=== PATIENT | male | born 1960 | race Caucasian/White ===

== ENCOUNTER 2016-11-05 17:41 | Inpatient (IN) | payer OTHER ==
[~2016-11-05] VITALS: Ht 188 cm; Wt 111.7 kg
[2016-11-05] MEDS ORDERED: morphine 4 MG/ML VIAL IV STA (20:37)
[2016-11-05 20:53] LABS: BASOPHILS % 0.4 % (0.0-2.0); EOSINOPHILS # 0.1 10^3/ul (0.0-0.5); EOSINOPHILS % 1.3 % (0.0-7.0); LYMPHOCYTES # 2.6 10^3/ul (0.8-2.9); LYMPHOCYTES % 27.9 % (15.0-51.0); MEAN CORPUSCULAR HEMOGLOBIN 31.9 pg (29.0-33.0); MEAN CORPUSCULAR HGB CONC 34.7 g/dl (32.0-37.0); MEAN CORPUSCULAR VOLUME 91.8 fl (82.0-101.0); MONOCYTE # 0.8 10^3/ul (0.3-0.9); MONOCYTES % 8.3 % (0.0-11.0); NEUTROPHIL # 5.8 10^3/ul (1.6-7.5); NEUTROPHILS % 62.1 % (39.0-77.0); RED BLOOD COUNT 5.01 10^6/ul (4.70-6.10); RED CELL DISTRIBUTION WIDTH 13.2 % (11.5-14.5); WHITE BLOOD COUNT 9.3 10^3/ul (4.8-10.8)
[2016-11-05 20:57] LABS: CONDITION 1; LH ANALYZER COMMENTS 1; SUSPECT 1; UNCORRECTED WBC 11.2 10^3/ul (4.8-10.8)
[2016-11-05 20:58] LABS: CHLORIDE 103 mmol/L (97-110); POTASSIUM 3.9 mmol/L (3.5-5.1); SODIUM 145 mmol/L (135-144)
[2016-11-05 20:59] LABS: INR 0.97; PROTIME 12.9 Sec (12.2-14.2)
[2016-11-05 21:01] LABS: ANION GAP 17 (8-16); BLOOD UREA NITROGEN 16 mg/dl (7-20); CARBON DIOXIDE 29 mmol/L (21-31)
[2016-11-05 21:02] LABS: CALCIUM 9.7 mg/dl (8.4-10.2); GLUCOSE 95 mg/dl (70-220)
[2016-11-05] MEDS ORDERED: GLIP-95 PO (21:05)
[2016-11-05] MEDS ORDERED: HYDROmorphONE 1 MG/ML SYG IV STA (21:05)
[2016-11-05] MEDS ORDERED: BENA20TA48 PO (21:05)
[2016-11-05] MEDS ORDERED: METF-388 PO (21:06)
[2016-11-05] MEDS ORDERED: SIMV20TA97 PO (21:06)
[2016-11-05] MEDS ORDERED: ASPI-664 PO (21:07)
[2016-11-05] MEDS ORDERED: METO-448 PO (21:08)
--- NOTE | 2016-11-05 21:11 | RADRPT ---
PROCEDURE: XR Ankle. CLINICAL INDICATION: Fracture, pain TECHNIQUE: AP and lateral views of the right ankle were performed. COMPARISON: None. FINDINGS: There is a comminuted fracture of the distal fibula, above the level ankle joint. There is widening of the tibiofibular syndesmosis. There is lateral dislocation of the talus relative to the distal tibia, 2.6 cm. There are multiple small adjacent bony fragments. There is small posterior and plan tar calcaneal spurs. There is an ankle effusion. IMPRESSION: 1. Comminuted fracture of the distal fibula above the level of the ankle joint. 2. Lateral dislocation of the talus up to 2.6 cm. Disruption of the tibiofibular syndesmosis. 3. Ankle effusion. RPTAT: HBST .Miguel Angel Mosqueda MD, Date Time Electronically viewed and signed by .Miguel Angel Mosqueda MD, on 11/05/2016 21:11 .T/
--- NOTE | 2016-11-05 21:13 | RADRPT ---
PROCEDURE: XR Chest. CLINICAL INDICATION: Chest Pain. TECHNIQUE: Single frontal view of the chest was obtained. COMPARISON: None. FINDINGS: The cardiomediastinal silhouette is normal size. Mildly enlarged. There is a small left pleural ef fusion. There is left base atelectasis. There is no pneumothorax . The osseous structures and soft tissues are unremarkable. IMPRESSION: 1. Mild cardiomegaly. 2. Small left pleural effusion. Left base atelectasis. RPTAT: HBST .Miguel Angel Mosqueda MD, MD Date Time Electronically viewed and signed by .Miguel Angel Mosqueda MD, on 11/05/2016 21:13 .T/
[2016-11-05 21:15] LABS: TROPONIN-I < 0.012 ng/ml (0.00-0.12)
[2016-11-05 21:28] LABS: CREATININE 0.87 mg/dl (0.61-1.24)
[2016-11-05] MEDS ORDERED: CEFTRIAXONE 1 GM/50 ML (PMX) 50 ML IVPB ONE (22:30)
[2016-11-05 22:37] LABS: MEAN PLATELET VOLUME 6.7 fl (7.4-10.4)
[2016-11-05 22:38] LABS: PLATELET COUNT 259 10^3/UL (140-440)
[2016-11-05 22:42] LABS: PLATELET ESTIMATE PLT APPEAR ADEQUATE; PLATELETS CLUMPS 3+
[2016-11-05] MEDS ORDERED: SOD CHLORIDE 0.9% 1,000 ML IV STA (22:46)
--- NOTE | 2016-11-05 22:46 | ERA ---
ER Documentation Chief Complaint Date/Time DATE: 11/05/16 TIME: 22:40 Chief Complaint rle fx 11/10, observed ulceration, redness, swell, states needs sx HPI This is a 55-year-old male who presents to the emergency room for evaluation of a right ankle fracture. According to the patient's son who is given history this patient did fracture his ankle going down steps on October 25, 2016. This patient was scheduled for his surgery at [facility] [place] however he states that surgery was canceled today due to "paperwork" the patient states that he was supposed to have surgery with Dr. Bishop. ROS All systems reviewed and are negative except as per history of present illness. Medications Home Meds Reported Medications Metoprolol Tartrate* (Lopressor*) 25 Mg Tab, 12.5 MG PO BID, #60 TAB 11/05/16 Aspirin* (Aspirin* EC) 81 Mg Tablet.dr, 81 MG PO DAILY, TAB 11/05/16 Metformin Hcl* (Metformin Hcl*) 1,000 Mg Tablet, 1000 MG PO WITH BREAKFAST, #30 TAB 11/05/16 Simvastatin* (Zocor*) 20 Mg Tablet, 20 MG PO QHS, #30 TAB 11/05/16 Benazepril Hcl* (Benazepril Hcl*) 20 Mg Tablet, 20 MG PO DAILY, #30 TAB 11/05/16 Glipizide* (Glipizide*) 10 Mg Tablet, 10 MG PO BID, TAB 11/05/16 Allergies Allergies: Coded Allergies: No Known Allergy (Unverified , 11/05/16) PMhx/Soc History of Surgery: No Anesthesia Reaction: No Hx Neurological Disorder: No Hx Respiratory Disorders: No Hx Cardiac Disorders: No Hx Psychiatric Problems: No Hx Miscellaneous Medical Probl: No Hx Alcohol Use: No Hx Substance Use: No Hx Tobacco Use: No Smoking Status: Never smoker Physical Exam Vitals Vital Signs Date Time Temp Pulse Resp B/P Pulse Ox O2 Delivery O2 Flow Rate FiO2 11/05/16 22:28 78 18 141/69 99 11/05/16 21:00 98 2.0 28 11/05/16 20:36 92 18 144/98 99 Nasal Cannula 2.0 11/05/16 20:18 Nasal Cannula 11/05/16 17:53 99.0 114 20 115/78 96 Physical Exam INITIAL VITAL SIGNS: Reviewed by me GENERAL: The patient is well developed and appropriate for usual state of health in no apparent distress HEENT: Pupils equal, round, and reactive to light. EOMI. There is no scleral icterus. NECK: C-spine is soft and supple, there is no meningismus. There is no cervical lymphadenopathy. LUNGS: Clear to auscultation bilaterally. There are no rales, wheezes or rhonchi. HEART: Regular rate and rhythm, no murmurs, clicks, rubs or gallops. ABDOMEN: Soft, non-tender, non-distended. There are bowel sounds in all four quadrants. No rebound or guarding. EXTREMITIES: Visible deformity of the right ankle with surrounding area of cellulitis and skin necrosis of the medial portion of the ankle, PT and DP pulses intact and symmetric bilaterally NEUROLOGICAL: The patient moves all four extremities with 5/5 strength. Cranial nerves II - XII are intact. Normal gait. Alert and oriented SKIN: There is no apparent rash or petechiae. HEME/LYMPHATIC: There is no evidence of excessive bruising or lymphedema. PSYCHIATRIC: The patient does not appear anxious or depressed. Result Diagram: 11/05/16201911/05/162019 Results 24 hrs Laboratory Tests Test 11/05/16 20:20 Activated Partial Thromboplast Time 26.0Sec Anion Gap 17 Basophils # 0.010^3/ul Basophils % 0.4% Blood Urea Nitrogen 16mg/dl Calcium Level 9.7mg/dl Carbon Dioxide Level 29mmol/L Chloride Level 103mmol/L Creatinine 0.87mg/dl Eosinophils # 0.110^3/ul Eosinophils % 1.3% Glucose Level 95mg/dl Hematocrit 46.0% Hemoglobin 16.0g/dl INR International Normalized Ratio 0.97 Lactic Acid Level 1.8mmol/L Lymphocytes # 2.610^3/ul Lymphocytes % 27.9% Mean Corpuscular Hemoglobin 31.9pg Mean Corpuscular Hemoglobin Concent 34.7g/dl Mean Corpuscular Volume 91.8fl Mean Platelet Volume 6.7fl Monocytes # 0.810^3/ul Monocytes % 8.3% Neutrophils # 5.810^3/ul Neutrophils % 62.1% Nucleated Red Blood Cells # 0.010^3/ul Nucleated Red Blood Cells % 0.0/100WBC Platelet Count 78079^3/UL Potassium Level 3.9mmol/L Prothrombin Time 12.9Sec Prothrombin Time Ratio 1.0 Red Blood Count 5.0110^6/ul Red Cell Distribution Width 13.2% Sodium Level 145mmol/L Troponin I < 0.012ng/ml White Blood Count 9.310^3/ul Current Medications Medications (Trade) Dose Ordered Sig/Sonam Route PRN Reason Start Time Stop Time Status Last Admin Dose Admin Morphine Sulfate (morphine) 4 mg ONCE STAT IV 11/05/16 20:37 11/05/16 20:38 DC 11/05/16 20:44 Hydromorphone HCl 1 mg 1 mg ONCE STAT IV 11/05/16 21:05 11/05/16 21:06 DC 11/05/16 21:23 Ceftriaxone Sodium (Rocephin) 50 ml @ 100 mls/hr ONCE ONCE IVPB 11/05/16 22:30 11/05/16 22:59 11/05/16 22:33 Procedures/MDM Chest X-ray 1V Interpreted by me: Soft Tissue: No acute abnormalities Bones: No acute abnormalities Mediastinum/Cardiac Silhouette/Lungs: [No acute abnormalities] EKG: Rate/Rhythm: [Normal Sinus Rhythm] QRS, ST, T-waves: [No changes consistent w/ acute ischemia] Impression: [No evidence of ischemia or arrhythmia] X-ray Ankle 3V Interpreted by me: Bones: 1. Comminuted fracture of the distal fibula above the level of the ankle joint. 2. Lateral dislocation of the talus up to 2.6 cm. Disruption of the tibiofibular syndesmosis. 3. Ankle effusion. Joints: Lateral dislocation of talus This is a 55-year-old male who presents to the emergency room for evaluation of right ankle fracture. This patient had an obvious deformity of the right ankle , he was neurovascularly intact. This patient was scheduled for surgery at [facility] tomorrow, however the surgery was canceled due to "paperwork ". I am assuming that this paperwork was a reference to insurance as there was some confusion as to whether this patient was capitated to another hospital or not. We have contacted the patient's insurance company who has given us an authorization number for this patient to be admitted at this facility. I have relayed this information to the patient's family, and Dr. Bishop, and our nursing supervisor [employer] who are all in agreement that the patient can stay in the hospital. This patient will be admitted to Dr. Orellana with orthopedic consult with Dr. Bishop. I have elected not to reduce this fracture as it is not acute and there is no neurovascular compromise. This patient did have a surrounding area of cellulitis with slight amount of skin necrosis on the medial malleolus. The patient did have blood work obtained including a lactic acid and blood cultures. Patient was started on Rocephin. The patient will be placed in for admission at this time on her MedSurg and will be kept n.p.o. Departure Diagnosis: Primary Impression: Closed right ankle fracture Additional Impression: Fracture dislocation of right ankle Condition: GOKUL Torres DO Nov 05, 2016 22:46
[2016-11-06] VITALS (19 sets, daily range): BP systolic 116–181; BP diastolic 64–119; PULSE 90–108; RESP 8–19; Ht 188 cm; Wt 111.7 kg
[2016-11-06] MEDS ORDERED: DEXTROSE 5%-0.45% NACL 1,000 ML IV SCH (00:13)
[2016-11-06] MEDS ORDERED: BISACODYL 10 MG SUPP PR PRN (00:30)
[2016-11-06] MEDS ORDERED: NACL 0.9% 3 ML SYG IV SCH (00:30)
[2016-11-06] MEDS ORDERED: BISACODYL (EC) 5 MG TAB PO PRN (00:30)
[2016-11-06] MEDS ORDERED: ALBUTEROL/IPRATROPIUM (NEB) 3 ML AMP HHN PRN (00:30)
[2016-11-06] MEDS ORDERED: ZOLPIDEM 5 MG TAB PO PRN (00:30)
[2016-11-06] MEDS ORDERED: ACETAMINOPHEN 325 MG TAB PO PRN (00:30)
[2016-11-06] MEDS ORDERED: DOCUSATE SODIUM 100 MG CAP PO PRN (00:30)
[2016-11-06] MEDS ORDERED: MAGNESIUM HYDROXIDE 30ML CUP PO PRN (00:30)
[2016-11-06] MEDS ORDERED: HYDROCODONE/APAP (5/325) TAB PO PRN (00:30)
[2016-11-06] MEDS ORDERED: ONDANSETRON 4 MG INJ IV PRN ×2 (00:30→16:30)
[2016-11-06] MEDS ORDERED: morphine 2 MG INJ IV PRN (00:30)
[2016-11-06] MEDS ORDERED: DEXTROSE 50% 50 ML SYRINGE IV PRN ×2 (01:30)
[2016-11-06] MEDS ORDERED: GLUCAGON 1 MG INJ IM PRN (01:30)
[2016-11-06] MEDS ORDERED: GLUCOSE GEL 15 GRAM TUBE PO PRN ×2 (01:30)
[2016-11-06] MEDS ORDERED: GLUCOSE GEL 15 GRAM TUBE BUCCAL PRN (01:30)
[2016-11-06] MEDS: INSULIN ASPART [NOVOLOG] 3 ML PEN SC SCH ×4 (08:00→20:55)
[2016-11-06] MEDS: METOPROLOL 25 MG TAB PO SCH ×2 (08:52→20:42)
[2016-11-06] MEDS: BENAZEPRIL 20 MG TAB PO SCH (08:52)
[2016-11-06] MEDS: FAMOTIDINE 20 MG INJ IV SCH ×2 (09:50→20:40)
[2016-11-06] MEDS ORDERED: VANCOMYCIN IV PER PHARMACY XX SCH (13:00)
[2016-11-06] MEDS ORDERED: VANCOMYCIN 1 GM (PMX) 250 ML IVPB SCH (13:00)
[2016-11-06] MEDS: PIPER-TAZO 3.375 GM IV (PMX) 100 ML IVPB SCH ×2 (13:03→18:00)
--- NOTE | 2016-11-06 14:26 | QN ---
Documentation Comment [id number] KRISTEN LYONS MD Nov 06, 2016 14:25
[2016-11-06] MEDS ORDERED: VANCOMYCIN 2 GM in SOD CHLORIDE 0.9% 500 ML IVPB SCH (15:00)
--- NOTE | 2016-11-06 16:21 | HP ---
DATE OF ADMISSION: 11/06/2016 HISTORY OF PRESENT ILLNESS: The patient is a 55-year-old male with history of CKD, history of hype rtension, diabetes mellitus, dyslipidemia and history of right ankle fracture. The patient was take n to [facility]. The patient was supposed to be seen by Dr. Bishop and then he was sherif d to come to this hospital. He presented with right ankle pain and swelling. Denies any fevers or chills. The x-ray done of chest shows mild cardiomegaly, small left pleural effusion. Patient's an kle x-ray shows comminuted fracture of the distal fibula above the level of the ankle joint, lateral dislocation of the talus at 2.6 cm and disruption of the tibiofibular syndesmosis and ankle effusio n. The patient had WBC 9.3, hematocrit 46. The patient is being admitted for further management. Sodium 145. PAST MEDICAL HISTORY: Diabetes, hypertension, dyslipidemia. ALLERGY HISTORY: NEGATIVE. FAMILY HISTORY: Negative. SOCIAL HISTORY: Negative. MEDICATIONS AT HOME: 1. Metformin. 2. Glipizide. 3. Zocor. MEDICATIONS: Currently, the patient is on : 1. Vancomycin. 2. Lipitor. 3. Zosyn. 4. Benazepril. 5. Metoprolol. 6. Pepcid. 7. Sliding scale insulin. REVIEW OF SYSTEMS: HEENT: Unremarkable. RESPIRATORY: Unremarkable. CARDIOVASCULAR: Unremarkable. ABDOMEN: Unremarkable. EXTREMITIES: As mentioned above. CENTRAL NERVOUS SYSTEM: Unremarkable. PHYSICAL EXAMINATION: GENERAL: The patient is an overweight, obese male. VITAL SIGNS: Pulse 69, blood pressure ____. HEAD: Atraumatic, normocephalic. Pupils equal, reactive to light. NECK: Supple. No JVD. LUNGS: Clear. CARDIOVASCULAR: S1, S2 are normal. ABDOMEN: Soft, nontender. Bowel sounds present. No palpable mass or hepatosplenomegaly. No guard ing, rebound tenderness. EXTREMITIES: There is no cyanosis, clubbing, or edema. JOINTS: The patient's right ankle is swollen, tender, red and edematous. Range of motion is restri cted because of the pain. CENTRAL NERVOUS SYSTEM: The patient is awake, alert, moving both upper and lower extremities. IMPRESSION: 1. Right ankle fracture. 2. Cellulitis of the right ankle. 3. Hypertension. 4. Diabetes mellitus, hypernatremia, dehydration. PLAN: Give this patient IV fluid, antibiotic, pain medication and orthopedic consultation. Orders were done. Dictated By: KRISTEN LYONS MD BS/NTS Conf#: [id number] DID#: [id number]
[2016-11-06] MEDS ORDERED: FENTAnyl 50 MCG/ML VIAL IV PRN (16:30)
[2016-11-06] MEDS ORDERED: HYDROmorphONE (0.2 MG/ML) 10ML SYG IV PRN ×2 (16:30)
[2016-11-06] MEDS ORDERED: MEPERIDINE 25 MG INJ IV PRN (16:30)
[2016-11-06] MEDS ORDERED: KETOROLAC 30 MG INJ IV ONE (16:30)
[2016-11-06] MEDS ORDERED: DIPHENHYDRAMINE 50 MG INJ IV PRN (16:30)
[2016-11-06] MEDS ORDERED: POLYMYXIN/BACITRACIN 1L IRRIG IRR ONE (16:51)
[2016-11-06] MEDS ORDERED: NEOMYC/POLYMYX/BACIT 30 GM OINT TOP ONE (17:28)
--- NOTE | 2016-11-06 18:09 | RADRPT ---
PROCEDURE: Intraoperative imaging of the right ankle with fluoroscopy. CLINICAL INDICATION: Right ankle pain. Intraoperative. TECHNIQUE: 8 images of the right ankle were obtained in the operating room with an image intensifi er. No radiologist was in attendance. 95.6 seconds of fluoroscopy time was used. COMPARISON: 11/05/2016. FINDINGS: Images demonstrate open reduction and internal fixation with a lateral plate and multiple screws tra nsfixing the distal fibula. A long screw extends through the plate into the distal tibia. IMPRESSION: 1. Intraoperative imaging of the right ankle. RPTAT: QQ .Igor Lopez MD, MD Date Time Electronically viewed and signed by .Igor Lopez MD, MD on 11/06/2016 18:09 .R/
[2016-11-06] MEDS ORDERED: LABETALOL HCL 20MG INJ IV ONE (19:00)
[2016-11-06] MEDS: ATORVASTATIN 20 MG TAB PO SCH (20:40)
[2016-11-06] MEDS: morphine 2 MG INJ IV PRN (20:45)
[2016-11-06] MEDS: DEXTROSE 5%-LR 1,000 ML IV SCH (20:50)
[2016-11-06] MEDS: CEFAZOLIN 1 GM/50 ML (PMX) 50 ML IVPB SCH (22:08)
[2016-11-06] MEDS: HYDROCODONE/APAP (10/325) TAB PO PRN (22:11)
[2016-11-07] MEDS: PIPER-TAZO 3.375 GM IV (PMX) 100 ML IVPB SCH ×5 (00:42→23:14)
[2016-11-07] MEDS: ACCUCHECK AT 2AM (Patients on SS coverage) XX SCH (01:53)
[2016-11-07] MEDS ORDERED: VANCOMYCIN 1.25 GM in SOD CHLORIDE 0.9% 250 ML IVPB SCH (03:00)
[2016-11-07] MEDS: morphine 2 MG INJ IV PRN (05:31)
[2016-11-07 06:38] LABS: ALBUMIN 3.3 g/dl (3.3-4.9)
[2016-11-07 06:41] LABS: ALBUMIN/GLOBULIN RATIO 1.17; BILIRUBIN,INDIRECT 0.6 mg/dl (0-1.1); BILIRUBIN,TOTAL 0.6 mg/dl (0.2-1.3); CREATININE 1.5 mg/dl (0.61-1.24); TOTAL PROTEIN 6.1 g/dl (6.1-8.1)
[2016-11-07 06:42] LABS: CALCIUM 8.5 mg/dl (8.4-10.2)
[2016-11-07 06:49] LABS: INR 1.11; PROTIME 14.3 Sec (12.2-14.2); PT RATIO 1.1
[2016-11-07 06:50] LABS: PARTIAL THROMBOPLASTIN TIME 28.1 Sec (25.0-35.0)
[2016-11-07] MEDS: CEFAZOLIN 1 GM/50 ML (PMX) 50 ML IVPB SCH ×2 (07:00→13:11)
[2016-11-07] MEDS: DEXTROSE 5%-LR 1,000 ML IV SCH ×2 (07:41→13:14)
[2016-11-07] MEDS: INSULIN ASPART [NOVOLOG] 3 ML PEN SC SCH ×4 (07:41→20:28)
[2016-11-07 07:51] LABS: BASOPHIL # 0.1 10^3/ul (0.0-0.1); BASOPHILS % 0.6 % (0.0-2.0); EOSINOPHILS # 0.2 10^3/ul (0.0-0.5); EOSINOPHILS % 1.7 % (0.0-7.0); HEMATOCRIT 40.9 % (42.0-52.0); HEMOGLOBIN 13.8 g/dl (14.0-18.0); LYMPHOCYTES # 1.5 10^3/ul (0.8-2.9); LYMPHOCYTES % 15.7 % (15.0-51.0); MEAN CORPUSCULAR HEMOGLOBIN 31.5 pg (29.0-33.0); MEAN CORPUSCULAR HGB CONC 33.7 g/dl (32.0-37.0); MEAN CORPUSCULAR VOLUME 93.5 fl (82.0-101.0); MEAN PLATELET VOLUME 8.1 fl (7.4-10.4); MONOCYTES % 10.1 % (0.0-11.0); NEUTROPHIL # 6.9 10^3/ul (1.6-7.5); NEUTROPHILS % 71.9 % (39.0-77.0); RED BLOOD COUNT 4.38 10^6/ul (4.70-6.10); RED CELL DISTRIBUTION WIDTH 12.9 % (11.5-14.5); WHITE BLOOD COUNT 9.6 10^3/ul (4.8-10.8)
[2016-11-07 07:53] VITALS: BP 108/62; RESP 18
[2016-11-07 07:57] LABS: CONDITION 1; LH ANALYZER COMMENTS 1; SUSPECT 1
[2016-11-07] MEDS: BENAZEPRIL 20 MG TAB PO SCH (08:08)
[2016-11-07] MEDS: METOPROLOL 25 MG TAB PO SCH ×2 (08:08→20:21)
[2016-11-07] MEDS: FAMOTIDINE 20 MG INJ IV SCH ×2 (08:09→20:20)
[2016-11-07] MEDS: HYDROCODONE/APAP (10/325) TAB PO PRN ×3 (11:16→23:26)
[2016-11-07 12:02] LABS: PLATELET COUNT 136 10^3/UL (140-440)
[2016-11-07 12:03] LABS: PLATELET ESTIMATE PLT APPEAR ADEQUATE; PLATELETS CLUMPS MOD
--- NOTE | 2016-11-07 16:24 | OPR ---
DATE OF OPERATION: 11/06/2016 PREOPERATIVE DIAGNOSIS: Displaced right ankle fracture. POSTOPERATIVE DIAGNOSIS: Displaced right ankle fracture. PROCEDURE PERFORMED: 1. Open reduction internal fixation of right ankle fracture using [place] distal fibular plate with locking and cortical screws including a syndesmotic screw. 2. Interpretation of intraoperative fluoroscopy x-ray. 3. Application of short leg fiberglass cast. SURGEON: Duong Bishop MD ANESTHESIA: General. ESTIMATED BLOOD LOSS: 75 mL. TOURNIQUET TIME: 35 minutes. COMPLICATIONS: None. DESCRIPTION OF PROCEDURE: The patient was taken to the operating room and general anesthetic given with intubation, 2 grams of Kefzol given for prophylaxis. Tourniquet applied on the right thigh. R ight leg prepped and draped in the usual sterile manner, exsanguinated with Esmarch bandage, tourniq uet inflated to 300 mmHg. The patient was noted to have abrasions along the medial aspect of the an kle with 2 spots measuring 1 x 1 inch with no penetration of the skin into the ankle and no bone was visible. No drainage was noted No purulence noted. Lateral incision made. Subperiosteal dissection carried out. A 10-hole plate was applied. Cortica l screws initially applied to maintain the reduction in satisfactory position. As there was instabi lity in the syndesmosis, a syndesmotic screw was placed through the plate with satisfactory reductio n of the syndesmosis with good compression of the fracture and reduction of the joint. Final x-ray shows satisfactory reduction in AP and lateral views. Wound irrigated with antibiotic solution. Hemostasis ascertained using cautery. Fascia closed with #1 Vicryl suture, skin closed with chuckie. Antibiotic ointment, Xeroform and ABD pads placed over the medial and lateral malleolus and the heel with ample cast padding and a short leg fiberglass ca st applied. Tourniquet deflated. Anesthetic reversed. The patient was taken to recovery in stable condition where he was noted to be neurovascularly intact. Dictated By: DUONG AMBROSIO/RICHAR Conf#: [id number] DID#: [id number]
--- NOTE | 2016-11-07 16:49 | CONS ---
DATE OF ADMISSION: 11/06/2016 DATE OF CONSULTATION: 11/06/2016 ORTHOPEDIC CONSULTATION REQUESTING PHYSICIAN: Jace Coates MD CHIEF COMPLAINT: Right ankle pain. HISTORY: The patient is a 55-year-old male who sustained a fall 1 week ago injuring the right ankle . The patient was seen in the emergency room and the leg was splinted. X-rays showed a displaced f racture of the right ankle involving the lateral malleolus with widening of the mortise. In light o f the displacement, surgery has been recommended. Nature of the surgery has been reviewed with the patient and the with a [employer] interpreter. The risks and complications not limited to infecti on, infection rate being higher due to the fact that he is diabetic, risk of blood clot, neurovascul ar injury, anesthetic complications, hardware failure, revision surgery, surgery for hardware remova l. The possibility placing a syndesmotic screw, which would be removed in the period of if n ecessary. At the present time, the patient does have abrasion of the skin along the medial aspect, which he attributes to the splint. There is a possibility that if skin necrosis develops, surgery w ould be needed for skin graft at this area. No guarantees were made about the outcome of the surgery . In light of the fact that there is derangement of the ankle, possibility of stiffness in the ankl e, loss of range of motion, arthritis is a possibility. Postoperatively, patient will be immobilize d in a cast and he will require physical therapy. The patient will remain nonweightbearing for a pe riod of 4 to 6 weeks. The patient and the understand the risks and agreed to proceed with the surgery. Dictated By: DUONG AMBROSIO/NTS Conf#: [id number] DID#: [id number]
--- NOTE | 2016-11-07 19:10 | PN ---
Date/Time of Note Date/Time of Note DATE: 11/07/16 TIME: 19:09 Assessment/Plan VTE Prophylaxis VTE Prophylaxis Intervention: other Lines/Catheters IV [facility] Peripheral IV Urinary Cath still in place: No Assessment/Plan Chief Complaint/Hosp Course IMPRESSION: 1. Right ankle fracture.s/p repair 2. Cellulitis of the right ankle. 3. Hypertension. 4. Diabetes mellitus, hypernatremia, dehydration. 5 felix plan ck labs Problems: Subjective 24 Hr Interval Summary Subjective hx not possible: other (s/p rt ankle surgery) Gastrointestinal: no complaints Genitourinary: no complaints Neurologic: no complaints Exam/Review of Systems Vital Signs Vitals Vital Signs Date Time Temp Pulse Resp B/P Pulse Ox O2 Delivery O2 Flow Rate FiO2 11/07/16 07:53 97.9 91 18 108/62 96 11/06/16 19:40 Room Air 11/05/16 21:00 2.0 28 Intake and Output 11/06/16 11/06/16 11/07/16 15:00 23:00 07:00 Intake Total 460 ml 1250 ml 1540 ml Output Total 100 ml 1150 ml Balance 460 ml 1150 ml 390 ml Exam Respiratory: clear to auscultation Cardiovascular: regular rate and rhythm Gastrointestinal: soft Musculoskeletal: nl extremities to inspection Extremities: normal pulses Results Result Diagram: 11/07/16 0435 11/07/16 0425 Results 24 hrs Laboratory Tests Test 11/06/16 20:54 11/07/16 04:25 11/07/16 04:35 11/07/16 07:40 Bedside Glucose 118 127 Alanine Aminotransferase (ALT/SGPT) 51 Albumin 3.3 Albumin/Globulin Ratio 1.17 Alkaline Phosphatase 67 Anion Gap 17 H Aspartate Amino Transf (AST/SGOT) 27 Blood Urea Nitrogen 17 Calcium Level 8.5 Carbon Dioxide Level 27 Chloride Level 104 Creatinine 1.50 H Direct Bilirubin 0.00 Globulin 2.80 Glucose Level 120 Indirect Bilirubin 0.6 Potassium Level 4.0 Sodium Level 144 Total Bilirubin 0.6 Total Protein 6.1 Activated Partial Thromboplast Time 28.1 Basophils # 0.1 Basophils % 0.6 Clumped Platelets MOD Eosinophils # 0.2 Eosinophils % 1.7 Hematocrit 40.9 L Hemoglobin 13.8 L INR International Normalized Ratio 1.11 Lymphocytes # 1.5 Lymphocytes % 15.7 Mean Corpuscular Hemoglobin 31.5 Mean Corpuscular Hemoglobin Concent 33.7 Mean Corpuscular Volume 93.5 Mean Platelet Volume 8.1 # Monocytes # 1.0 H Monocytes % 10.1 Neutrophils # 6.9 Neutrophils % 71.9 Nucleated Red Blood Cells # 0.0 Nucleated Red Blood Cells % 0.0 Platelet Count 136 #L Platelet Estimate PLT APPEAR ADEQUATE Prothrombin Time 14.3 H Prothrombin Time Ratio 1.1 Red Blood Count 4.38 L Red Cell Distribution Width 12.9 White Blood Count 9.6 Test 11/07/16 11:08 11/07/16 16:31 Bedside Glucose 124 101 Medications Medications Current Medications Benazepril HCl (Lotensin) 20 mg DAILY PO Last administered on 11/07/16 08:08; Admin Dose 20 MG; Start 11/06/16 at 09:00 Metoprolol Tartrate (Lopressor) 12.5 mg BID PO Last administered on 11/07/16 08:08; Admin Dose 12.5 MG; Start 11/06/16 at 09:00 Atorvastatin Calcium (Lipitor) 20 mg QHS PO Last administered on 11/06/16 20: 40; Admin Dose 20 MG; Start 11/06/16 at 21:00 Ondansetron HCl (Zofran Inj) 4 mg Q4H PRN IV NAUSEA AND/OR VOMITING; Start at 00:30 Acetaminophen (Tylenol Tab) 650 mg Q6H PRN PO PAIN LEVEL 1-3 OR FEVER; Start at 00:30 Docusate Sodium (Colace) 100 mg Q12H PRN PO CONSTIPATION; Start 11/06/16 at 00: 30 Magnesium Hydroxide (Milk Of Mag) 30 ml DAILY PRN PO CONSTIPATION; Start at 00:30 Bisacodyl (Dulcolax) 5 mg DAILY PRN PO CONSTIPATION; Start 11/06/16 at 00:30 Bisacodyl (Dulcolax Supp) 10 mg DAILY PRN [place] CONSTIPATION; Start 11/06/16 at 00 :30 Zolpidem Tartrate (Ambien) 5 mg QHS PRN PO SLEEP; Start 11/06/16 at 00:30 Famotidine (Pepcid Iv) 20 mg Q12 IV Last administered on 11/07/16 08:09; Admin Dose 20 MG; Start 11/06/16 at 09:00 Miscellaneous Information 1 ea NOTE XX ; Start 11/06/16 at 01:30 Glucose (Glutose) 15 gm Q15M PRN PO DECREASED GLUCOSE; Start 11/06/16 at 01:30 Glucose (Glutose) 22.5 gm Q15M PRN PO DECREASED GLUCOSE; Start 11/06/16 at 01: 30 Dextrose (D50w Syringe) 25 ml Q15M PRN IV DECREASED GLUCOSE; Start 11/06/16 at 01:30 Dextrose (D50w Syringe) 50 ml Q15M PRN IV DECREASED GLUCOSE; Start 11/06/16 at 01:30 Glucagon (Glucagen) 1 mg Q15M PRN IM DECREASED GLUCOSE; Start 11/06/16 at 01:30 Glucose (Glutose) 15 gm Q15M PRN BUCCAL DECREASED GLUCOSE; Start 11/06/16 at 01 :30 Diagnostic Test (Pha) 1 ea 1 ea 02 XX ; Start 11/07/16 at 02:00 Piperacillin Sod/ Tazobactam Sod (Zosyn 3.375gm/ 100 ml (Pmx)) 100 ml @ 200 mls /hr Q6 IVPB Last administered on 11/07/16 17:15; Admin Dose 200 MLS/HR; Start 11/06/16 at 13:00 Morphine Sulfate (morphine) 2 mg Q2H PRN IV PAIN Last administered on 05:31; Admin Dose 2 MG; Start 11/06/16 at 18:30 Acetaminophen/ Hydrocodone Bitart (Randolph (10/325)) 1 tab Q4H PRN PO PAIN; Start 11/06/16 at 18:30 Acetaminophen/ Hydrocodone Bitart 2 tab 2 tab Q4H PRN PO PAIN Last administered on 11/07/16 16:10; Admin Dose 2 TAB; Start 11/06/16 at 18:30 Dextrose/Lactated Ringer's 1,000 ml @ 90 mls/hr Q11H7M IV Last administered on 11/07/16 13:14; Admin Dose 90 MLS/HR; Start 11/06/16 at 18:30 Vancomycin HCl/ Sodium Chloride (Vancocin/NS) 150 ml @ 75 mls/hr Q12H IVPB ; Start 11/07/16 at 20:00 KRISTEN LYONS MD Nov 07, 2016 19:10
[2016-11-07 19:34] VITALS: BP 131/72; RESP 20
[2016-11-07] MEDS: VANCOMYCIN 750 MG in SOD CHLORIDE 0.9% 150 ML IVPB SCH (20:08)
[2016-11-07] MEDS: ATORVASTATIN 20 MG TAB PO SCH (20:20)
[2016-11-08] MEDS: ACCUCHECK AT 2AM (Patients on SS coverage) XX SCH (01:45)
[2016-11-08] MEDS: DEXTROSE 5%-LR 1,000 ML IV SCH (03:54)
[2016-11-08] MEDS: PIPER-TAZO 3.375 GM IV (PMX) 100 ML IVPB SCH ×4 (05:02→23:49)
[2016-11-08 06:17] LABS: BASOPHILS % 0.3 % (0.0-2.0); EOSINOPHILS # 0.3 10^3/ul (0.0-0.5); EOSINOPHILS % 2.4 % (0.0-7.0); HEMATOCRIT 38.5 % (42.0-52.0); HEMOGLOBIN 13.3 g/dl (14.0-18.0); LYMPHOCYTES # 1.9 10^3/ul (0.8-2.9); LYMPHOCYTES % 17.9 % (15.0-51.0); MEAN CORPUSCULAR HEMOGLOBIN 31.8 pg (29.0-33.0); MEAN CORPUSCULAR HGB CONC 34.6 g/dl (32.0-37.0); MEAN CORPUSCULAR VOLUME 91.8 fl (82.0-101.0); MEAN PLATELET VOLUME 8.3 fl (7.4-10.4); MONOCYTES % 9.4 % (0.0-11.0); NEUTROPHIL # 7.4 10^3/ul (1.6-7.5); PLATELET COUNT 130 10^3/UL (140-440); RED CELL DISTRIBUTION WIDTH 13.3 % (11.5-14.5); UNCORRECTED WBC 10.6 10^3/ul (4.8-10.8); WHITE BLOOD COUNT 10.6 10^3/ul (4.8-10.8)
[2016-11-08 06:20] LABS: ALBUMIN 3.3 g/dl (3.3-4.9)
[2016-11-08 06:21] LABS: POTASSIUM 3.9 mmol/L (3.5-5.1)
[2016-11-08 06:23] LABS: ALBUMIN/GLOBULIN RATIO 1.13; BILIRUBIN,INDIRECT 0.4 mg/dl (0-1.1); BILIRUBIN,TOTAL 0.4 mg/dl (0.2-1.3); CREATININE 1.95 mg/dl (0.61-1.24); TOTAL PROTEIN 6.2 g/dl (6.1-8.1)
[2016-11-08 06:24] LABS: CALCIUM 8.7 mg/dl (8.4-10.2)
[2016-11-08 06:28] LABS: CREATININE 1.95 mg/dl (0.61-1.24)
[2016-11-08 07:02] LABS: CONDITION 1; LH ANALYZER COMMENTS 1; SUSPECT 1
[2016-11-08] MEDS: HYDROCODONE/APAP (10/325) TAB PO PRN ×2 (07:43→16:04)
[2016-11-08] MEDS: VANCOMYCIN 750 MG in SOD CHLORIDE 0.9% 150 ML IVPB SCH (07:44)
[2016-11-08] MEDS: INSULIN ASPART [NOVOLOG] 3 ML PEN SC SCH ×4 (08:09→20:26)
[2016-11-08 08:30] VITALS: BP 127/76; RESP 17
[2016-11-08] MEDS: BENAZEPRIL 20 MG TAB PO SCH (08:47)
[2016-11-08] MEDS: FAMOTIDINE 20 MG INJ IV SCH (08:47)
[2016-11-08] MEDS: METOPROLOL 25 MG TAB PO SCH ×2 (08:48→20:21)
[2016-11-08] MEDS: ENOXAPARIN 40 MG/0.4 ML SYG SC SCH (08:49)
[2016-11-08] MEDS: ERTAPENEM SODIUM 1 GM in SOD CHLORIDE 0.9% 100 ML IVPB SCH (15:57)
--- NOTE | 2016-11-08 16:04 | PN ---
Date/Time of Note Date/Time of Note DATE: 11/08/16 TIME: 16:03 Assessment/Plan VTE Prophylaxis VTE Prophylaxis Intervention: other Lines/Catheters IV C[facility]ter Type (from [facility]): Peripheral IV Urinary Cath still in place: No Assessment/Plan Chief Complaint/Hosp Course IMPRESSION: 1. Right ankle fracture.s/p repair 2. Cellulitis of the right ankle. 3. Hypertension. 4. Diabetes mellitus, hypernatremia, dehydration. 5 felix 6 ESBL plan ck labs KID ULTRAS Problems: Subjective 24 Hr Interval Summary Respiratory: no complaints Cardiovascular: no complaints Exam/Review of Systems Vital Signs Vitals Vital Signs Date Time Temp Pulse Resp B/P Pulse Ox O2 Delivery O2 Flow Rate FiO2 11/08/16 08:30 98.2 87 17 127/76 97 11/06/16 19:40 Room Air 11/05/16 21:00 2.0 28 Intake and Output 11/07/16 11/07/16 11/08/16 15:00 23:00 07:00 Intake Total 960 ml 2030 ml 1070 ml Output Total 800 ml Balance 960 ml 2030 ml 270 ml Exam Neck: supple Respiratory: clear to auscultation Cardiovascular: regular rate and rhythm Gastrointestinal: soft Musculoskeletal: other (PAIN+) Results Result Diagram: 11/08/16 0458 11/08/16 0458 Results 24 hrs Laboratory Tests Test 11/07/16 16:31 11/07/16 20:18 11/08/16 04:54 11/08/16 04:58 Bedside Glucose 101 123 Alanine Aminotransferase (ALT/SGPT) 40 Albumin 3.3 Albumin/Globulin Ratio 1.13 Alkaline Phosphatase 67 Anion Gap 13 Aspartate Amino Transf (AST/SGOT) 22 Blood Urea Nitrogen 21 H 21 H Calcium Level 8.7 Carbon Dioxide Level 28 Chloride Level 106 Creatinine 1.95 H 1.95 H Direct Bilirubin 0.00 Globulin 2.90 Glucose Level 118 Indirect Bilirubin 0.4 Potassium Level 3.9 Sodium Level 143 Total Bilirubin 0.4 Total Protein 6.2 Basophils # 0.0 Basophils % 0.3 Eosinophils # 0.3 Eosinophils % 2.4 Hematocrit 38.5 L Hemoglobin 13.3 L Lymphocytes # 1.9 Lymphocytes % 17.9 Mean Corpuscular Hemoglobin 31.8 Mean Corpuscular Hemoglobin Concent 34.6 Mean Corpuscular Volume 91.8 Mean Platelet Volume 8.3 Monocytes # 1.0 H Monocytes % 9.4 Neutrophils # 7.4 Neutrophils % 70.0 Nucleated Red Blood Cells # 0.0 Nucleated Red Blood Cells % 0.0 Platelet Count 130 L Red Blood Count 4.20 L Red Cell Distribution Width 13.3 White Blood Count 10.6 Test 11/08/16 07:47 11/08/16 11:48 Bedside Glucose 182 161 Medications Medications Current Medications Benazepril HCl (Lotensin) 20 mg DAILY PO Last administered on 11/08/16 08:47; Admin Dose 20 MG; Start 11/06/16 at 09:00 Metoprolol Tartrate (Lopressor) 12.5 mg BID PO Last administered on 11/08/16 08:48; Admin Dose 12.5 MG; Start 11/06/16 at 09:00 Atorvastatin Calcium (Lipitor) 20 mg QHS PO Last administered on 11/07/16 20: 20; Admin Dose 20 MG; Start 11/06/16 at 21:00 Ondansetron HCl (Zofran Inj) 4 mg Q4H PRN IV NAUSEA AND/OR VOMITING; Start at 00:30 Acetaminophen (Tylenol Tab) 650 mg Q6H PRN PO PAIN LEVEL 1-3 OR FEVER; Start at 00:30 Docusate Sodium (Colace) 100 mg Q12H PRN PO CONSTIPATION; Start 11/06/16 at 00: 30 Magnesium Hydroxide (Milk Of Mag) 30 ml DAILY PRN PO CONSTIPATION; Start at 00:30 Bisacodyl (Dulcolax) 5 mg DAILY PRN PO CONSTIPATION; Start 11/06/16 at 00:30 Bisacodyl (Dulcolax Supp) 10 mg DAILY PRN MS CONSTIPATION; Start 11/06/16 at 00 :30 Zolpidem Tartrate (Ambien) 5 mg QHS PRN PO SLEEP; Start 11/06/16 at 00:30 Famotidine (Pepcid Iv) 20 mg Q12 IV Last administered on 11/08/16 08:47; Admin Dose 20 MG; Start 11/06/16 at 09:00 Miscellaneous Information 1 ea NOTE XX ; Start 11/06/16 at 01:30 Glucose (Glutose) 15 gm Q15M PRN PO DECREASED GLUCOSE; Start 11/06/16 at 01:30 Glucose (Glutose) 22.5 gm Q15M PRN PO DECREASED GLUCOSE; Start 11/06/16 at 01: 30 Dextrose (D50w Syringe) 25 ml Q15M PRN IV DECREASED GLUCOSE; Start 11/06/16 at 01:30 Dextrose (D50w Syringe) 50 ml Q15M PRN IV DECREASED GLUCOSE; Start 11/06/16 at 01:30 Glucagon (Glucagen) 1 mg Q15M PRN IM DECREASED GLUCOSE; Start 11/06/16 at 01:30 Glucose (Glutose) 15 gm Q15M PRN BUCCAL DECREASED GLUCOSE; Start 11/06/16 at 01 :30 Diagnostic Test (Pha) 1 ea 1 ea 02 XX ; Start 11/07/16 at 02:00 Piperacillin Sod/ Tazobactam Sod (Zosyn 3.375gm/ 100 ml (Pmx)) 100 ml @ 200 mls /hr Q6 IVPB Last administered on 11/08/16 11:43; Admin Dose 200 MLS/HR; Start 11/06/16 at 13:00 Morphine Sulfate (morphine) 2 mg Q2H PRN IV PAIN Last administered on 05:31; Admin Dose 2 MG; Start 11/06/16 at 18:30 Acetaminophen/ Hydrocodone Bitart ([place] (10/325)) 1 tab Q4H PRN PO PAIN Last administered on 11/08/16 07:43; Admin Dose 1 TAB; Start 11/06/16 at 18:30 Acetaminophen/ Hydrocodone Bitart 2 tab 2 tab Q4H PRN PO PAIN Last administered on 11/07/16 23:26; Admin Dose 2 TAB; Start 11/06/16 at 18:30 Dextrose/Lactated Ringer's (D5-Lr) 1,000 ml @ 90 mls/hr Q11H7M IV Last administered on 11/08/16 03:54; Admin Dose 90 MLS/HR; Start 11/06/16 at 18:30 Enoxaparin Sodium 40 mg 40 mg DAILY SC Last administered on 11/08/16 08:49; Admin Dose 40 MG; Start 11/08/16 at 09:00 Ertapenem/Sodium Chloride (Invanz/NS) 100 ml @ 200 mls/hr Q24H IVPB ; Start at 16:00 KRISTEN LYONS MD Nov 08, 2016 16:03
[2016-11-08] MEDS: SOD CHLORIDE 0.9% 1,000 ML IV SCH (17:05)
--- NOTE | 2016-11-08 17:10 | RADRPT ---
PROCEDURE: Retroperitoneal US. CLINICAL INDICATION: Renal insufficiency TECHNIQUE: Multiple sonographic images of the kidneys and retroperitoneum were obtained. The imag es were reviewed on a PACS workstation. COMPARISON: No prior studies are available for comparison. FINDINGS: The kidneys are normal in contour, cortical thickness and echogenicity. The right kidney measures 12.6 cm. The left kidney measures 15.2 cm. There are 2 simple cysts in the left kidney, the largest measuring 5.4 cm. No kidney stones are visualized. There is no evidence for hydronephrosis. The urinary bladder is normal. RPTAT: AA IMPRESSION: No evidence of hydronephrosis or kidney stones. Enlarged left kidney with 2 simple cysts. .Darrlel Gibbs MD, Date Time Electronically viewed and signed by .Darrell Gibbs MD, MD on 11/08/2016 17:10 .S/
[2016-11-08 19:40] VITALS: BP 130/72; RESP 18
[2016-11-08] MEDS: ATORVASTATIN 20 MG TAB PO SCH (20:19)
[2016-11-08] MEDS: FAMOTIDINE 20 MG TAB PO SCH (20:19)
[2016-11-09] MEDS: ACCUCHECK AT 2AM (Patients on SS coverage) XX SCH (02:00)
[2016-11-09 05:32] LABS: BASOPHIL # 0.1 10^3/ul (0.0-0.1); BASOPHILS % 0.9 % (0.0-2.0); EOSINOPHILS # 0.3 10^3/ul (0.0-0.5); EOSINOPHILS % 3.5 % (0.0-7.0); HEMATOCRIT 37.8 % (42.0-52.0); HEMOGLOBIN 12.9 g/dl (14.0-18.0); LYMPHOCYTES # 1.6 10^3/ul (0.8-2.9); LYMPHOCYTES % 17.4 % (15.0-51.0); MEAN CORPUSCULAR HEMOGLOBIN 31.7 pg (29.0-33.0); MEAN CORPUSCULAR VOLUME 93.3 fl (82.0-101.0); MEAN PLATELET VOLUME 9.2 fl (7.4-10.4); MONOCYTE # 0.9 10^3/ul (0.3-0.9); MONOCYTES % 9.3 % (0.0-11.0); NEUTROPHIL # 6.3 10^3/ul (1.6-7.5); NEUTROPHILS % 68.9 % (39.0-77.0); PLATELET COUNT 127 10^3/UL (140-440); RED BLOOD COUNT 4.06 10^6/ul (4.70-6.10); RED CELL DISTRIBUTION WIDTH 13.2 % (11.5-14.5); UNCORRECTED WBC 9.2 10^3/ul (4.8-10.8); WHITE BLOOD COUNT 9.2 10^3/ul (4.8-10.8)
[2016-11-09 05:33] LABS: CONDITION 1; LH ANALYZER COMMENTS 1; SUSPECT 1
[2016-11-09] MEDS: PIPER-TAZO 3.375 GM IV (PMX) 100 ML IVPB SCH ×2 (05:37→12:25)
[2016-11-09 05:45] LABS: CREATININE 1.98 mg/dl (0.61-1.24); POTASSIUM 4.3 mmol/L (3.5-5.1)
[2016-11-09] MEDS: SOD CHLORIDE 0.9% 1,000 ML IV SCH ×2 (06:18→08:46)
[2016-11-09 07:46] VITALS: BP 130/75; RESP 20
[2016-11-09] MEDS: INSULIN ASPART [NOVOLOG] 3 ML PEN SC SCH ×3 (08:00→17:26)
[2016-11-09] MEDS: HYDROCODONE/APAP (10/325) TAB PO PRN ×2 (08:42→16:27)
[2016-11-09] MEDS: FAMOTIDINE 20 MG TAB PO SCH (08:42)
[2016-11-09] MEDS: ENOXAPARIN 40 MG/0.4 ML SYG SC SCH (08:42)
[2016-11-09] MEDS: METOPROLOL 25 MG TAB PO SCH (08:43)
[2016-11-09] MEDS: BENAZEPRIL 20 MG TAB PO SCH (08:48)
[2016-11-09] MEDS: ERTAPENEM SODIUM 1 GM in SOD CHLORIDE 0.9% 100 ML IVPB SCH (17:28)
--- NOTE | 2016-11-09 18:45 | PDOCDIS ---
Discharge Instructions CONDITION Patient Condition: Stable HOME CARE INSTRUCTIONS: Special Diet: 1800 shana ADA ACTIVITY: Activity Restrictions: Slowly Increase Activity No Weight Bearing FOLLOW UP/APPOINTMENTS Appointments see own pcp [address] smith 1 wk no walking rt KRISTEN Quinones MD Nov 09, 2016 18:45
[2016-11-09] MEDS ORDERED: LEVO500T72 PO (18:46)
[2016-11-09] MEDS ORDERED: Hydrocodone/Apap (10/325) PO (18:46)
[2016-11-09 20:04] VITALS: BP 146/84; RESP 19
--- NOTE | 2016-11-09 22:59 | QN ---
Documentation Comment [id number] KRISTEN LYONS MD Nov 09, 2016 22:59
--- NOTE | 2016-11-10 12:16 | DS ---
DATE OF ADMISSION: 11/06/2016 DATE OF DISCHARGE: 11/09/2016 HISTORY OF PRESENT ILLNESS: The patient was admitted with right ankle comminuted fracture of the di stal fibula, above the level of the ankle joint, lateral dislocation of talus up to ____ from the ti anita/fibula, syndesmosis, ankle fusion. The patient is also has cellulitis. The patient was seen by Dr. Bishop and underwent open reduction internal fixation of the right an kle, lateral using [place] distal/fibula plate with locking and cortical screws including syndesmoti c screws. INTERPRETATION OF INTRAOPERATIVE FLUOROSCOPY: Once started with the antibiotic, the patient was not ed to have ESBL urinary infection sensitive to Levaquin. The patient developed acute kidney injury which is stable now. Focus on the kidney which showed no hydronephrosis, obstruction ____. DISCHARGE INSTRUCTIONS: The patient was instructed to follow with patient's own PCP and do BMP this week and once a week, and outpatient followup with us in Nephrology after getting approval. The [place] agreed. The patient also was instructed not to put any weight on the right foot by Dr. Alejandro ch and to see Dr. Bishop as an outpatient with weekly or monthly ____ to see in followup. The p atient's benazepril is on hold. Blood pressure was stable. DISCHARGE DIAGNOSES: 1. Right ankle fracture status post open reduction internal fixation. 2. Right ankle cellulitis. 3. Hypertension. 4. Diabetes mellitus history. 5. Acute kidney injury. 6. Postop stable. 7. The patient has ESBL urinary tract infection, possibly colonization and chronic. DISCHARGE MEDICATIONS: The patient to continue: 1. Levaquin. 2. [place]. DIET: 1. Low salt diet. 2. Diabetic diet. FOLLOWUP: The patient to followup with PCP within a few days and followup with Dr. Bishop, BMP a s an outpatient. CONDITION AT DISCHARGE: Stable. Dictated By: KRISTEN TRAMMELL/NTS Conf#: [id number] DID#: [id number]
== END 2016-11-09 20:39 | disposition home or self-care (01) | DRG 493 ==
LOC: E/R 17:41 → PP2 11-06 00:16
PROVIDERS: ADMIT Internal Medicine Nephrology; ATTEND Internal Medicine Nephrology
PROC: 0QSJ04Z Reposition Right Fibula with Internal Fixation Device, Open Approach (ICD-10-PCS; principal; 2016-11-07)
DX: S82.61XA Displaced fracture of lateral malleolus of right fibula, initial encounter for closed fracture (principal); E87.0 Hyperosmolality and hypernatremia; N17.9 Acute kidney failure, unspecified; L03.115 Cellulitis of right lower limb; N39.0 Urinary tract infection, site not specified; E11.22 Type 2 diabetes mellitus with diabetic chronic kidney disease; I12.9 Hypertensive chronic kidney disease with stage 1 through stage 4 chronic kidney disease, or unspecified chronic kidney disease; N18.9 Chronic kidney disease, unspecified; E86.0 Dehydration; S93.04XA Dislocation of right ankle joint, initial encounter; W10.8XXA Fall (on) (from) other stairs and steps, initial encounter; Y92.89 Other specified places as the place of occurrence of the external cause; Z79.84 Long term (current) use of oral hypoglycemic drugs
CPT/HCPCS: 36415; 71010; 76775; 80048; 80053; 82565; 82962; 83605; 84484; 84520; 85025; 85610; 85730; 87040; 87070; 87086; 93005; 96374; 96375; J0690; J1170; J1335; J1650; J1815; J2270; J2543; J3370; J7030; J7040; J7042; J7050; J7121

== ENCOUNTER 2017-01-29 11:01 | Emergency (ER) | payer OTHER ==
[~2017-01-29] VITALS: Ht 177.8 cm; Wt 100.0 kg
[~2017-01-29 11:01] MED LIST: ASPI-664 PO; GLIP-95 PO; Hydrocodone/Apap (10/325) PO; LEVO500T72 PO; METO-448 PO; SIMV20TA PO
[2017-01-29 11:07] VITALS: Ht 177.8 cm; Wt 100.0 kg
[2017-01-29] MEDS ORDERED: HC1C30 TOP (12:11)
--- NOTE | 2017-01-29 12:24 | ERD ---
ER Documentation Chief Complaint Date/Time DATE: 01/29/17 TIME: 12:13 Chief Complaint pt bib family with c/o right leg pain, wants chuckie out, HPI This is a 56-year-old male presents to the ER for staple removal of cables to his right lower leg. Patient had ankle surgery in November 06 and was scheduled for a second surgery today when his chuckie to be taken out as well. Surgery was however canceled secondary to insurance problems. Patient denies any pain to the area however the area is very itchy and he still is a lot of dry skin around the area. Patient is insistent on removing chuckie. There is no discharge from the area. He has not had any fevers or chills. He currently has not been bearing weight on extremity. ROS 12 point review of systems was done, all negative except per HPI. Medications Home Meds Active Scripts Hydrocortisone* Topical (Hydrocortisone* Topical) 1%-28.35 Gm Cream..g., 1 APPLIC TOP Q6 Y for ITCHING, #1 TUB Prov:HECTOR RIGGS 01/29/17 Levofloxacin* (Levaquin*) 500 Mg Tablet, 500 MG PO DAILY for 10 Days, TAB Prov:KRISTEN LYONS MD 11/09/16 [Hydrocodone/Apap (10325)] 1 TAB TAB No Conflict Check, 2 TAB PO Q4H Y for PAIN for 30 Days Prov:KRISTEN LYONS MD 11/09/16 Reported Medications Metoprolol Tartrate* (Lopressor*) 25 Mg Tab, 12.5 MG PO BID, #60 TAB 11/05/16 Aspirin* (Aspirin* EC) 81 Mg Tablet.dr, 81 MG PO DAILY, TAB 11/05/16 Simvastatin* (Zocor*) 20 Mg Tablet, 20 MG PO QHS, #30 TAB 11/05/16 Glipizide* (Glipizide*) 10 Mg Tablet, 10 MG PO BID, TAB 11/05/16 Allergies Allergies: Coded Allergies: No Known Allergy (Unverified , 11/05/16) PMhx/Soc History of Surgery: No Anesthesia Reaction: No Hx Neurological Disorder: No Hx Respiratory Disorders: No Hx Cardiac Disorders: Yes (HTN ) Hx Psychiatric Problems: No Hx Miscellaneous Medical Probl: Yes (MORBID OBESITY, DM) Hx Alcohol Use: No Hx Substance Use: No Hx Tobacco Use: No Smoking Status: Never smoker Physical Exam Vitals Vital Signs Date Time Temp Pulse Resp B/P Pulse Ox O2 Delivery O2 Flow Rate FiO2 01/29/17 11:07 98.3 72 18 143/93 97 Physical Exam GENERAL: The patient is well developed and appropriate for usual state of health , in no apparent distress. HEENT: Atraumatic. CHEST: Clear to auscultation bilaterally. There are no rales, wheezes or rhonchi. HEART: Regular rate and rhythm. No murmurs, clicks, rubs or gallops. EXTREMITIES: Patient has chuckie in place to the lateral right lower leg there is no erythema no discharge there is also [address] NEURO: Alert and oriented. SKIN: The skin is warm and dry. Procedures/MDM This is a 56 y.o male that presents to the ER for staple removal. This time there is no evidence of infection. Patient is neurovascularly intact and has normal capillary refill. Patient's chuckie were removed successfully without any complications there was no bleeding. Patient does have some dry skin to the area , patient will be given hydrocortisone for skin dryness. Patient is to follow-up with his primary care doctor within 1-2 days or return to ER sooner if symptoms worsen. My medical decision making sure with the patient he understands and agrees with plan. Departure Diagnosis: Primary Impression: Dermatitis Additional Impression: Removal of staple Condition: Stable Patient Instructions: Dermatitis, Non-Specific Additional Instructions: Call your primary care doctor TOMORROW for an appointment during the next 1-2 days.See the doctor sooner or return here if your condition worsens before your appointment time. HECTOR RIGGS Jan 29, 2017 12:23
== END 2017-01-29 12:27 | disposition home or self-care (01) ==
LOC: FTE 11:01
DX: L25.9 Unspecified contact dermatitis, unspecified cause (principal); I10 Essential (primary) hypertension; E11.9 Type 2 diabetes mellitus without complications; Z48.02 Encounter for removal of sutures; Z79.82 Long term (current) use of aspirin; Z79.84 Long term (current) use of oral hypoglycemic drugs
CPT/HCPCS: 99283

== ENCOUNTER 2017-02-12 09:54 | Day surgery (SDC) | payer OTHER ==
[~2017-02-12] VITALS: Ht 188 cm; Wt 119.0 kg
[2017-02-12] VITALS (14 sets, daily range): BP systolic 115–156; BP diastolic 64–92; PULSE 85–116; RESP 10–21; Ht 188 cm; Wt 119.0 kg
[~2017-02-12 09:54] MED LIST changes: +EPHEDrine SULFATE 50 MG/5 ML SYG ONE; +HC1C30 TOP
[2017-02-12] MEDS ORDERED: INSU100V27 SQ (10:46)
[2017-02-12] MEDS ORDERED: PROPOFOL 20 ML ONE (12:28)
[2017-02-12] MEDS ORDERED: LIDOCAINE 1% (MDV) 20 ML INJ ONE (12:28)
[2017-02-12] MEDS ORDERED: ROPIVACAINE 0.5 % 30 ML VIAL ONE (12:31)
[2017-02-12] MEDS ORDERED: ROCURONIUM 50 MG INJ ONE (12:34)
[2017-02-12] MEDS ORDERED: SUCCINYLCHOLINE CHLORIDE 100 MG/5 ML SYG IV ONE (12:34)
--- NOTE | 2017-02-12 12:52 | HPN ---
Date/Time of Note Date/Time of Note DATE: 02/12/17 TIME: 12:52 Interval H&P Admission Note Pt. seen H&P reviewed: No system changes DUONG KRAMER MD Feb 12, 2017 12:52
[2017-02-12] MEDS ORDERED: KETOROLAC 30 MG INJ ONE (13:01)
[2017-02-12] MEDS ORDERED: ACETAMINOPHEN 1000MG/100ML IV 100 ML ONE (13:01)
[2017-02-12] MEDS ORDERED: ONDANSETRON 4 MG INJ ONE (13:02)
[2017-02-12] MEDS ORDERED: FAMOTIDINE 20 MG INJ ONE (13:02)
[2017-02-12] MEDS ORDERED: DEXAMETHASONE 4 MG/ML 1 ML INJ ONE (13:02)
[2017-02-12] MEDS ORDERED: LIDOCAINE 1% (MPF) 30 ML INJ ONE (13:03)
[2017-02-12] MEDS ORDERED: BUPIVACAINE 0.25% (MPF) 30 ML INJ ONE (13:04)
[2017-02-12] MEDS ORDERED: CEFAZOLIN 1 GM INJ ONE (13:07)
[2017-02-12] MEDS ORDERED: PHENYLephrine (100 MCG/ML) 5ML SYG ONE (13:22)
[2017-02-12] MEDS ORDERED: BACITRACIN/POLYMYXIN 28.35 GM OINT TOP ONE (13:28)
--- NOTE | 2017-02-13 13:27 | OPR ---
DATE OF OPERATION: 02/12/2017 ANESTHESIA: General. PREOPERATIVE DIAGNOSIS: Retained hardware right ankle status post trimalleolar fracture open reduct ion internal fixation. POSTOPERATIVE DIAGNOSIS: Retained hardware right ankle status post trimalleolar fracture open reduc tion internal fixation. PROCEDURE PERFORMED: 1. Removal of a single syndesmotic screw from right ankle. 2. Interpretation of intraoperative fluoroscopy x-ray. ESTIMATED BLOOD LOSS: Minimal. COMPLICATIONS: None. DESCRIPTION: After . Tourniquet not used. of the right ankle. A single syndesmosis s crew, extending from the left fibular plate, into the medial tibial cortex, was removed. The screw was intact. The mortise was satisfactory with moderate healing of the distal fibular fracture. Wou nd irrigated with antibiotic solution. Hemostasis ascertained using cautery. Fascia was closed wit h #0 Vicryl sutures. Skin closed with chuckie. Compression bandage applied. Patient went to [facility] in stable condition. Dictated By: DUONG AMBROSIO/RICHAR Conf#: [id number] DID#: [id number]
--- NOTE | 2017-02-15 12:18 | RADRPT ---
PROCEDURE: X-ray fluoroscopy guidance CLINICAL INDICATION: Right ankle hardware removal TECHNIQUE: Fluoroscopic guidance was utilized for intraoperative procedure. COMPARISON: None. FINDINGS: Fluoroscopic guidance was utilized for intraoperative procedure. 23 seconds of fluoroscopy time was utilized for the procedure. 4 x-ray images were obtained during the procedure. There has been removal of a cannulated screw was crossed into the middle of the distal tibia. IMPRESSION: X-ray fluoroscopic guidance utilized for intraoperative procedure. Interval removal of a cannulated screw which crossed into the middle of the distal tibia. Please see procedure note details. RPTAT: EE Physician Arley Date Time Electronically viewed and signed by Physician Arley on 02/15/2017 12:18 RA/
== END 2017-02-12 16:48 | disposition home or self-care (01) ==
LOC: SDS 09:54
PROVIDERS: ATTEND Specialist
DX: Z45.89 Encounter for adjustment and management of other implanted devices (principal); I10 Essential (primary) hypertension; E11.9 Type 2 diabetes mellitus without complications; E66.9 Obesity, unspecified; Z68.33 Body mass index [BMI] 33.0-33.9, adult
CPT/HCPCS: 20680; 73610; 82962; 88300; J0690; J1100; J2370; J2405; Z7512; Z7610; J0131; J0330; J1885; J2795

== ENCOUNTER 2017-09-29 05:34 | Day surgery (SDC) | payer OTHER ==
--- NOTE | 2016-11-06 12:58 | HPN ---
Date/Time of Note Date/Time of Note DATE: 11/06/16 TIME: 12:58 Interval H&P Admission Note Pt. seen H&P reviewed: No system changes DUONG KRAMER MD Nov 06, 2016 12:58
[2017-09-29] VITALS (11 sets, daily range): BP systolic 110–149; BP diastolic 75–102; PULSE 76–88; RESP 9–18; Ht 188 cm; Wt 117.0 kg
[~2017-09-29] VITALS: Ht 188 cm; Wt 117.0 kg
[~2017-09-29 05:34] MED LIST changes: +BACITRACIN/POLYMYXIN 28.35 GM OINT TOP ONE; +BUPIVACAINE 0.25%/EPI (SDV) 30 ML INJ ONE; +CEFAZOLIN 1 GM INJ ONE; +CEFAZOLIN 1 GM/50 ML (PMX) 50 ML IVPB ONE; -EPHEDrine SULFATE 50 MG/5 ML SYG ONE; -HC1C30 TOP; -Hydrocodone/Apap (10/325) PO; +INSU100V27 SQ; +KETOROLAC 30 MG INJ ONE; +LABETALOL HCL 20MG INJ ONE; -LEVO500T72 PO; +LIDOCAINE 2% (SDV) 5 ML INJ ONE; +MIDAZOLAM 1 MG/ML 2 ML INJ ONE; +NEOMYC/POLYMYX/BACIT 30 GM OINT ONE; +ONDANSETRON 4 MG INJ ONE; +PHENYLephrine (100 MCG/ML) 5ML SYG ONE; +PROPOFOL 40 ML ONE; +ROCURONIUM 50 MG INJ ONE; +ROPIVACAINE 0.5 % 30 ML VIAL ONE; +morphine 10 MG INJ ONE
[2017-09-29 06:36] LABS: BASOPHILS % 0.6 % (0.0-2.0); EOSINOPHILS # 0.2 10^3/ul (0.0-0.5); EOSINOPHILS % 3.3 % (0.0-7.0); HEMOGLOBIN 14.9 g/dl (14.0-18.0); LYMPHOCYTES # 2.3 10^3/ul (0.8-2.9); LYMPHOCYTES % 33.6 % (15.0-51.0); MEAN CORPUSCULAR HEMOGLOBIN 30.8 pg (29.0-33.0); MEAN CORPUSCULAR HGB CONC 34.7 g/dl (32.0-37.0); MEAN PLATELET VOLUME 10.2 fl (7.4-10.4); MONOCYTE # 0.6 10^3/ul (0.3-0.9); MONOCYTES % 8.1 % (0.0-11.0); NEUTROPHIL # 3.7 10^3/ul (1.6-7.5); NEUTROPHILS % 54.1 % (39.0-77.0); PLATELET COUNT 222 10^3/UL (140-415); RED BLOOD COUNT 4.83 10^6/ul (4.70-6.10); RED CELL DISTRIBUTION WIDTH 12.2 % (11.5-14.5); WHITE BLOOD COUNT 6.8 10^3/ul (4.8-10.8)
[2017-09-29] MEDS ORDERED: PROPOFOL 200 MG INJ ONE (07:00)
[2017-09-29] MEDS ORDERED: BENA20TA48 PO (07:33)
--- NOTE | 2017-09-29 07:52 | HPN ---
Date/Time of Note Date/Time of Note DATE: 09/29/17 TIME: 07:52 Interval H&P Admission Note Pt. seen H&P reviewed: No system changes SULMA OATES DPM Sep 29, 2017 07:52
[2017-09-29] MEDS ORDERED: ROCURONIUM 50 MG INJ ONE (08:17)
[2017-09-29] MEDS ORDERED: PROPOFOL 20 ML ONE (08:17)
[2017-09-29] MEDS ORDERED: MIDAZOLAM 1 MG/ML 2 ML INJ ONE ×2 (08:18)
[2017-09-29] MEDS ORDERED: ROPIVACAINE 0.5 % 30 ML VIAL ONE (08:18)
[2017-09-29] MEDS ORDERED: FENTAnyl 50 MCG/ML VIAL ONE ×2 (08:18→09:14)
[2017-09-29] MEDS ORDERED: PHENYLephrine (100 MCG/ML) 5ML SYG ONE (08:55)
[2017-09-29] MEDS ORDERED: BUPIVACAINE 0.5%/EPI (SDV) 30 ML INJ ONE (08:56)
[2017-09-29] MEDS ORDERED: CEFAZOLIN 1 GM INJ ONE (08:56)
[2017-09-29] MEDS ORDERED: KETOROLAC 30 MG INJ ONE (09:21)
[2017-09-29] MEDS ORDERED: DEXAMETHASONE 4 MG/ML 1 ML INJ ONE (09:21)
[2017-09-29] MEDS ORDERED: METOCLOPRAMIDE 10 MG INJ ONE (09:21)
[2017-09-29] MEDS ORDERED: ONDANSETRON 4 MG INJ ONE (09:21)
[2017-09-29] MEDS ORDERED: SUGAMMADEX SODIUM 200 MG/2 ML VIAL IV ONE (10:11)
[2017-09-29] MEDS ORDERED: ACETAMINOPHEN 1000MG/100ML IV 100 ML ONE (10:11)
--- NOTE | 2017-09-29 10:24 | SIPON ---
Date/Time of Note Date/Time of Note DATE: 09/29/17 TIME: 10:21 Operative Report Preoperative Diagnosis Severe right ankle arthritis Exostosis of the right ankle Right ankle pain Morbid obesity History of previous ORIF of the right ankle Diabetes with polyneuropathy Postoperative Diagnosis Severe right ankle arthritis Exostosis of the right ankle Right ankle pain Morbid obesity History of previous ORIF of the right ankle Diabetes with polyneuropathy Operation/Procedure Performed Right ankle arthroscopy with debridement Surgeon see signature line paraprofessional education assistant None Anesthesia: general Estimated blood loss: minimal Transfusion Required none Specimen No specimen Grafts/Implants none Complications none SULMA OATES DPM Sep 29, 2017 10:24
--- NOTE | 2017-09-29 10:25 | OPR ---
Date/Time of Note Date/Time of Note DATE: 09/29/17 TIME: 10:25 Operative Report Procedure Date: Sep 29, 2017 Preoperative Diagnosis Right ankle degenerative joint disease Right ankle pain Exostosis right ankle medial malleolus Morbid obesity Diabetes mellitus Peripheral neuropathy Postoperative Diagnosis Right ankle degenerative joint disease Right ankle pain Exostosis right ankle medial malleolus Morbid obesity Diabetes mellitus Peripheral neuropathy Operation/Procedure Performed Right ankle arthroscopy with debridement Surgeon see signature line Master In Chancery None Anesthesia Type: general Estimated Blood Loss: minimal Transfusion none Specimen None Grafts/Implants none Tubes/Drains None Complications none Pt Condition Post Procedure: stable Disposition: PACU Indications This is a pleasant 56-year-old male patient who has been suffering with severe pain and discomfort in the right ankle joint for many years. He suffered an ankle fracture and had undergone open reduction with internal fixation. Patient was evaluated and was found to have significant degenerative joint disease and limitation of range of motion along with pain and crepitus. Patient has failed the following treatments: Activity modification, shoe gear modification, NSAIDs, injections. Patient seeks surgical management. Recommended procedure: default value. Risks and complications of this type of surgery was discussed with patient in great detail. Risks and complications discussed included, but are not limited to, postoperative infection, postoperative pain, hardware failure, malunion, nonunion, delayed union, failure of surgery to correct the problem, need for additional surgical procedures, deep venous thrombosis, limb loss and loss of life. Patient understands the discussion and agrees to the procedure. An informed consent was signed, obtained and placed in the chart. No guarantees or warrantees was given or implied as to the outcome of the procedure either in verbal or written form. Procedure Description The patient was seen in the preoperative area. The proposed surgery was discussed with patient in great detail. Risks and complications of this type of surgery was discussed with patient in great detail. Opportunity was given to patient to ask questions and all questions were answered. The patient acknowledges understanding of the discussion. An informed consent was then obtained, signed and placed in the chart. Patient was taken to the operating room and was placed on the operating table in the [supine position]. All bony prominences were padded properly. A timeout was called by the circulating nurse. Everyone in the operating room was agreeable to the timeout. The patient was then placed under [general anesthesia] by the anesthesiologist. A thigh tourniquet was applied to the right thigh. The right lower extremity was scrubbed, prepped and draped in the usual aseptic manner. An Esmarch bandage was utilized to exsanguinate the right lower extremity and the thigh tourniquet was inflated to 300 mmHg pressure. Procedure #1: Right ankle arthroscopy with debridement Attention was directed to the right ankle. I injected the right ankle with 10 cc of 0.25% Marcaine with epinephrine. An anterolateral portal was created using a #11 blade with blunt dissection following into the joint. The trocar and obturator were inserted into the joint. Scope was inserted and the joint was evaluated from medial to lateral. Pictures were obtained. Significant amount of degenerative disease was noted with destruction of cartilaginous surface of both the tibia and the talus. Loose bodies were present in the joint. An anteromedial portal was created in a similar manner. The scope was then inserted into the medial portal and the joint was surveyed from lateral to medial. Again extensive degeneration of the joint was noted and pictures were obtained. An ArthroCare device was inserted and debridement of the joints commenced. Next, shaver was inserted and further debridement was done. I switched back to the lateral anterior quarter and started to look for the medial gutter possible exostosis. There was significant amount of soft tissue which appeared to be loose. This soft tissue was debrided using the ArthroCare. I was unable to see Bal exostosis in the medial gutter. All instrumentation was removed from the ankle joint. Next, the ankle joint range of motion was checked and it was found to be increased. Fluoroscopy was utilized to visualize possible exostosis of the ankle joint and it was found to be incorporated in the deltoid ligament. Decision was made not to do exostectomy at this time. Both incisions were closed using simple suture technique and 4-0 Monocryl suture. Sterile dressing was applied to the right foot and ankle. Anesthesiologist had given patient's femoral and popliteal block prior to the case. The thigh tourniquet was deflated at this time and prompt hyperemic response was noted to digits of the right foot. The patient tolerated procedure and anesthesia well. He was transferred to recovery room with vital signs stable and vascular status intact. Patient will be discharged home after postoperative monitoring. Nonweightbearing ordered for the right lower extremity with a walker. Patient is to follow-up in my office in 1 week. Prescription was submitted electronically to his pharmacy. SULMA OATES DPM Sep 29, 2017 10:25
[2017-09-29] MEDS ORDERED: EPHEDrine SULFATE 50 MG/5 ML SYG IV PRN (10:30)
[2017-09-29] MEDS ORDERED: METOCLOPRAMIDE 10 MG INJ IV PRN (10:30)
[2017-09-29] MEDS ORDERED: MEPERIDINE 25 MG INJ IV PRN (10:30)
[2017-09-29] MEDS ORDERED: FENTAnyl 50 MCG/ML VIAL IV PRN ×3 (10:30)
[2017-09-29] MEDS ORDERED: ONDANSETRON 4 MG INJ IV PRN (10:30)
[2017-09-29] MEDS ORDERED: hydrALAzine 20 MG INJ IV PRN (10:30)
[2017-09-29] MEDS ORDERED: DIPHENHYDRAMINE 50 MG INJ IV PRN (10:30)
[2017-09-29] MEDS ORDERED: HYDROmorphONE (0.2 MG/ML) 10ML SYG IV PRN ×3 (10:30)
[2017-09-29] MEDS ORDERED: LABETALOL HCL 20MG INJ IV PRN (10:30)
[2017-09-29] MEDS ORDERED: OXYCODONE/ACETAMINOPHEN (5/325) TAB PO PRN ×2 (10:30)
--- NOTE | 2017-09-29 11:22 | RADRPT ---
PROCEDURE: Right ankle CLINICAL INDICATION: Postop TECHNIQUE: 3 views COMPARISON: 02/12/2017 FINDINGS: Multiple screws and plate noted over right distal fibular fracture. Fusion of the tibiofibular ligam ent is seen. Medial malleolar fracture is seen. Ankle mortise appears intact. Calcaneal spur noted i n the plantar and superior surface. IMPRESSION: Healed right distal fibular fracture RPTAT: AAOO Physician Kenny Date Time Electronically viewed and signed by Physician Kenny on 09/29/2017 11:21 MB/
--- NOTE | 2017-09-29 12:09 | RADRPT ---
PROCEDURE: Intraoperative imaging of the right ankle with fluoroscopy. CLINICAL INDICATION: Right ankle pain. Intraoperative. TECHNIQUE: 2 images of the right ankle were obtained in the operating room with an image intensifi er. No radiologist was in attendance. Fluoroscopy time is 15.7 seconds. COMPARISON: 02/12/2017. FINDINGS: Images demonstrate a lateral plate and multiple screws transfixing a healed fracture of the distal f ibula. There is fusion with ossification of the tibiofibular interosseous ligament. IMPRESSION: 1. Intraoperative imaging of the right ankle. RPTAT: QQ .Igor Lopez MD, MD Date Time Electronically viewed and signed by .Igor Lopez MD, on 09/29/2017 12:09 .R/
== END 2017-09-30 17:22 | disposition home or self-care (01) ==
LOC: SDS 05:34
PROVIDERS: ATTEND Podiatrist Foot & Ankle Surgery
DX: M19.071 Primary osteoarthritis, right ankle and foot (principal); D16.31 Benign neoplasm of short bones of right lower limb; E11.42 Type 2 diabetes mellitus with diabetic polyneuropathy; E66.9 Obesity, unspecified; Z68.33 Body mass index [BMI] 33.0-33.9, adult; I10 Essential (primary) hypertension; E78.5 Hyperlipidemia, unspecified
CPT/HCPCS: 29897; 73600; 73610; 82962; 85025; J0131; J0690; J1100; J1885; J2250; J2405; J2765; J2795; J3010; Z7512; Z7610; J2270; J2370